=== PATIENT | female | born 1970 | race Caucasian/White ===

== ENCOUNTER 2020-07-09 16:09 | Emergency (ER) | payer BC, OTHER ==
--- NOTE | 2020-07-09 16:17 | ERPHSYRPT ---
- History of Present Illness Time Seen by Provider: 07/09/20 16:17 Source: patient Exam Limitations: no limitations Physician History: This is a 50-year-old white female who is known to be COVID-19 positive. She was diagnosed on June 28, 2020. Patient symptoms of cough, body aches and shortness of breath have increased and she is here for further evaluation. Timing/Duration: today Cough Quality/Degree: moderate, dry cough Possible Cause: occasional episodes Modifying Factors: Improves With: coughing Associated Symptoms: cough, shortness of breath, No fever, No chest pain/soreness Travel Risk - International Travel Have you traveled outside of the country in past 3 weeks: No - Coronavirus Screening Are you exhibiting any of the following symptoms?: Yes Symptoms: Fever, Cough: New Onset, Shortness of Breath, Headaches/Body Aches/Fatigue Close contact with a COVID-19 positive Pt in past 14-21 Days: Yes - Review of Systems Constitutional: No Symptoms Eyes: No Symptoms Ears, Nose, & Throat: No Symptoms Respiratory: Cough, Dyspnea Cardiac: No Symptoms Abdominal/Gastrointestinal: No Symptoms Genitourinary Symptoms: No Symptoms Musculoskeletal: No Symptoms Skin: No Symptoms Neurological: No Symptoms Psychological: No Symptoms Endocrine: No Symptoms Hematologic/Lymphatic: No Symptoms Immunological/Allergic: No Symptoms All Other Systems: Reviewed and Negative - Past Medical History Pertinent Past Medical History: Yes Neurological History: No Pertinent History ENT History: No Pertinent History Cardiac History: No Pertinent History Respiratory History: No Pertinent History Endocrine Medical History: No Pertinent History Musculoskeletal History: No Pertinent History GI Medical History: No Pertinent History History: No Pertinent History Psycho-Social History: No Pertinent History Female Reproductive Disorders: No Pertinent History - Past Surgical History Past Surgical History: Yes Neuro Surgical History: No Pertinent History Cardiac: No Pertinent History Respiratory: No Pertinent History Gastrointestinal: No Pertinent History Genitourinary: No Pertinent History Musculoskeletal: No Pertinent History Female Surgical History: No Pertinent History - Nursing Vital Signs Nursing Vital Signs: Initial Vital Signs Temperature 98.2 F 07/09/20 16:16 Pulse Rate 85 07/09/20 16:16 Respiratory Rate 15 07/09/20 16:16 Blood Pressure 133/92 07/09/20 16:16 O2 Sat by Pulse Oximetry 100 07/09/20 16:16 Pain Scale Pain Intensity 5 - Physical Exam General Appearance: mild distress, alert, anxiety Eye Exam: PERRL/EOMI Ears, Nose, Throat Exam: normal ENT inspection, moist mucous membranes Neck Exam: normal inspection, non-tender, supple, full range of motion Respiratory Exam: normal breath sounds, lungs clear, airway intact, No chest tenderness, No respiratory distress Cardiovascular Exam: regular rate/rhythm, normal heart sounds, normal peripheral pulses Gastrointestinal/Abdomen Exam: soft, normal bowel sounds, No tenderness Pelvic Exam: not done Rectal Exam: not done Back Exam: normal inspection, normal range of motion, No CVA tenderness, No vertebral tenderness Extremity Exam: normal inspection, normal range of motion, pelvis stable Neurologic Exam: alert, oriented x 3, cooperative, screen roller II-XII nml as tested, normal mood/affect, nml cerebellar function, nml station & gait, sensation nml Skin Exam: normal color, warm, dry Lymphatic Exam: No adenopathy SpO2 Interpretation: normal O2 Delivery: Room Air - Course Nursing assessment & vital signs reviewed: Yes EKG Interpreted by Me: RATE ([id number]), Sinus Rhythm, NORMAL AXIS, NORMAL INTERVALS, NORMAL QRS Ordered Tests: Active Orders 24 hr Category Date Time Status Blow Moulding Machine Operator STAT Care 07/09/20 16:21 Active EKG-ER Only STAT Care 07/09/20 16:20 Active IV Insertion STAT Care 07/09/20 16:20 Active Isolation, Initiate & Maintain STAT Care 07/09/20 16:20 Active CHEST 1 VIEW (PORTABLE) Stat Exams 07/09/20 16:21 Completed CHEST WITH CONTRAST [CT] Stat Exams 07/09/20 17:20 Taken BLOOD CULTURE Stat Lab 07/09/20 16:40 Received CBC W DIFF Stat Lab 07/09/20 16:40 Completed CMP Stat Lab 07/09/20 16:40 Completed D-DIMER QUANTITATIVE Stat Lab 07/09/20 16:40 Completed Ferritin Stat Lab 07/09/20 16:40 Completed LDH-LACTATE DEHYDROGENASE Stat Lab 07/09/20 16:40 Completed Lactic Acid Stat Lab 07/09/20 16:33 Completed [place] Screen Stat Lab 07/09/20 16:40 Completed TROPONIN Q3H Lab 07/09/20 16:40 Completed TROPONIN Q3H Lab 07/09/20 19:30 Ordered TROPONIN Q3H Lab 07/09/20 22:30 Ordered TROPONIN Q3H Lab 07/10/20 01:30 Ordered TROPONIN Q3H Lab 07/10/20 04:30 Ordered Medication Summary Generic Name Dose Route Start Last Admin Trade Name Josh PRN Reason Stop Dose Admin Sodium Chloride 1,000 mls @ 100 mls/hr 07/09/20 17:30 07/09/20 17:29 Sodium Chloride 0.9% 1000 Ml IV 08/08/20 17:29 100 mls/hr .Q10H QUANG Administration Ceftriaxone Sodium/Dextrose 1 g in 50 mls @ 100 mls/hr 07/09/20 18:50 Rocephin 1 Gm-D5w 50 Ml Bag IV 07/09/20 19:19 STAT STA Discontinued Medications Generic Name Dose Route Start Last Admin Trade Name Josh PRN Reason Stop Dose Admin Hydrocodone Bitart/Acetaminophen 10 ml 07/09/20 16:46 07/09/20 16:51 Hydrocodone-Acetamin 2.5-108/5 Ml Solution PO 07/09/20 16:47 10 ml STAT STA Administration Hydrocodone Bitart/Acetaminophen Confirm 07/09/20 16:47 Hydrocodone-Acetamin 2.5-108/5 Ml Solution Administered 07/09/20 16:48 Dose 10 ml .ROUTE .STK-MED ONE Methylprednisolone Sodium Succinate 125 mg 07/09/20 16:45 07/09/20 16:51 Solu-Medrol 125 Mg IV 07/09/20 16:46 125 mg STAT ONE Administration Methylprednisolone Sodium Succinate Confirm 07/09/20 16:47 Solu-Medrol 125 Mg Administered 07/09/20 16:48 Dose 125 mg .ROUTE .STK-MED ONE Lab/Rad Data: Laboratory Result Diagrams 07/09/20 16:40 07/09/20 16:40 Laboratory Results 07/09/20 07/09/20 07/09/20 Range/Units 16:40 16:40 16:40 WBC (4.0-10.5) K/mm3 RBC (4.1-5.4) M/mm3 Hgb (12.0-16.0) gm/dl Hct (35-47) % MCV (78-100) fl MCH (26-32) pg MCHC (32-36) g/dl RDW (11.5-14.0) % Plt Count (150-450) K/mm3 MPV (7.5-11.0) fl Gran % (36.0-66.0) % Eos # (Auto) (0-0.5) Absolute Lymphs (auto) (1.0-4.6) Absolute Monos (auto) (0.0-1.3) Lymphocytes % (24.0-44.0) % Monocytes % (0.0-12.0) % Eosinophils % (0.00-5.0) % Basophils % (0.0-0.4) % Absolute Granulocytes (1.4-6.9) Basophils # (0-0.4) D-Dimer (215-500) ng/mL Sodium (137-145) mmol/L Potassium (3.5-5.1) mmol/L Chloride (98-107) mmol/L Carbon Dioxide (22-30) mmol/L Anion Gap (5-15) MEQ/L BUN (7-17) mg/dL Creatinine (0.52-1.04) mg/dL Estimated GFR ML/MIN Glucose (74-106) mg/dL Lactic Acid (0.4-2.0) Calcium (8.4-10.2) mg/dL Ferritin 34.0 (11.1-264) ng/mL Total Bilirubin (0.2-1.3) mg/dL AST (14-36) U/L ALT (0-35) U/L Alkaline Phosphatase (38-126) U/L Lactate Dehydrogenase (120-246) U/L Troponin I < 0.012 (0.000-0.034) ng/mL Serum Total Protein (6.3-8.2) g/dL Albumin (3.5-5.0) g/dL Monoscreen NEGATIVE (Negative) Influenza Type A Ag (NEGATIVE) Influenza Type B Ag (NEGATIVE) RSV (PCR) (Negative) Group A Strep Antibody (NEGATIVE) 07/09/20 07/09/20 07/09/20 Range/Units 16:40 16:40 16:40 WBC (4.0-10.5) K/mm3 RBC (4.1-5.4) M/mm3 Hgb (12.0-16.0) gm/dl Hct (35-47) % MCV (78-100) fl MCH (26-32) pg MCHC (32-36) g/dl RDW (11.5-14.0) % Plt Count (150-450) K/mm3 MPV (7.5-11.0) fl Gran % (36.0-66.0) % Eos # (Auto) (0-0.5) Absolute Lymphs (auto) (1.0-4.6) Absolute Monos (auto) (0.0-1.3) Lymphocytes % (24.0-44.0) % Monocytes % (0.0-12.0) % Eosinophils % (0.00-5.0) % Basophils % (0.0-0.4) % Absolute Granulocytes (1.4-6.9) Basophils # (0-0.4) D-Dimer 1166 H* (215-500) ng/mL Sodium 138 (137-145) mmol/L Potassium 3.7 (3.5-5.1) mmol/L Chloride 107 (98-107) mmol/L Carbon Dioxide 28 (22-30) mmol/L Anion Gap 7.2 (5-15) MEQ/L BUN 10 (7-17) mg/dL Creatinine 0.50 L (0.52-1.04) mg/dL Estimated GFR > 60.0 ML/MIN Glucose 109 H (74-106) mg/dL Lactic Acid (0.4-2.0) Calcium 8.9 (8.4-10.2) mg/dL Ferritin (11.1-264) ng/mL Total Bilirubin 0.30 (0.2-1.3) mg/dL AST 23 (14-36) U/L ALT 17 (0-35) U/L Alkaline Phosphatase 70 (38-126) U/L Lactate Dehydrogenase 194 (120-246) U/L Troponin I (0.000-0.034) ng/mL Serum Total Protein 6.8 (6.3-8.2) g/dL Albumin 3.8 (3.5-5.0) g/dL Monoscreen (Negative) Influenza Type A Ag NEGATIVE (NEGATIVE) Influenza Type B Ag NEGATIVE (NEGATIVE) RSV (PCR) NEGATIVE (Negative) Group A Strep Antibody (NEGATIVE) 07/09/20 07/09/20 07/09/20 Range/Units 16:40 16:33 16:21 WBC 7.2 (4.0-10.5) K/mm3 RBC 4.11 (4.1-5.4) M/mm3 Hgb 12.3 (12.0-16.0) gm/dl Hct 38.0 (35-47) % MCV 92.5 (78-100) fl MCH 29.9 (26-32) pg MCHC 32.4 (32-36) g/dl RDW 12.9 (11.5-14.0) % Plt Count 338 (150-450) K/mm3 MPV 10.3 (7.5-11.0) fl Gran % 74.5 H (36.0-66.0) % Eos # (Auto) 0.13 (0-0.5) Absolute Lymphs (auto) 1.12 (1.0-4.6) Absolute Monos (auto) 0.59 (0.0-1.3) Lymphocytes % 15.5 L (24.0-44.0) % Monocytes % 8.1 (0.0-12.0) % Eosinophils % 1.8 (0.00-5.0) % Basophils % 0.1 (0.0-0.4) % Absolute Granulocytes 5.39 (1.4-6.9) Basophils # 0.01 (0-0.4) D-Dimer (215-500) ng/mL Sodium (137-145) mmol/L Potassium (3.5-5.1) mmol/L Chloride (98-107) mmol/L Carbon Dioxide (22-30) mmol/L Anion Gap (5-15) MEQ/L BUN (7-17) mg/dL Creatinine (0.52-1.04) mg/dL Estimated GFR ML/MIN Glucose (74-106) mg/dL Lactic Acid 1.6 (0.4-2.0) Calcium (8.4-10.2) mg/dL Ferritin (11.1-264) ng/mL Total Bilirubin (0.2-1.3) mg/dL AST (14-36) U/L ALT (0-35) U/L Alkaline Phosphatase (38-126) U/L Lactate Dehydrogenase (120-246) U/L Troponin I (0.000-0.034) ng/mL Serum Total Protein (6.3-8.2) g/dL Albumin (3.5-5.0) g/dL Monoscreen (Negative) Influenza Type A Ag (NEGATIVE) Influenza Type B Ag (NEGATIVE) RSV (PCR) (Negative) Group A Strep Antibody NOT DETECTED (NEGATIVE) - Progress Progress: improved, re-examined Air Movement: good Progress Note: 07/09/20 17:16 Chest x-ray shows no acute cardiopulmonary process. 07/09/20 18:54 CAT scan of the chest with contrast is negative for pulmonary emboli. There is very subtle patchy bilateral lower lobe peripheral opacities typical in appearance for COVID-19 pneumonia. Medical decision making: This patient states that her symptoms have significantly improved after infusion of methylprednisolone and consumption of hydrocodone solution to help control her cough. Her white count is normal, patient is afebrile, she is oxygenating at 99% on room air, her lactic acid is normal, her anion gap is also normal. Her CO2 is normal. Patient wants to go home. She is feeling much better and feels she can continue improving on the prednisone, hydrocodone, Z-Nicko regimen. I think this is reasonable. Blood Culture(s) Obtained: Yes Antibiotics given: Yes Counseled pt/family regarding: lab results, diagnosis, need for follow-up, rad results - Departure Departure Disposition: Home Clinical Impression: Pneumonia due to COVID-19 virus Condition: Stable Critical Care Time: Yes Critical Care Time(excluding separately billable procedures): Critical 30-74 mins Referrals: [facility] [Primary Care Provider] - Additional Instructions: Drink plenty of fluids. Take your medication as prescribed. Return to the emergency department if your symptoms worsen. Quarantine yourself until you are asymptomatic and have a negative COVID-19 lab test. Prescriptions: Prednisone 10 mg [Deltasone 10 mg] 10 mg PO TID #12 tablet Hydrocodone Bit/Acetaminophen [Hydrocodone-Acetaminophen Soln] 10 ml PO Q6H #120 ml Albuterol 8 gm Mdi Hfa [Ventolin Hfa MDI] 8 gm IH Q4H #1 [email or web address] Azithromycin 250 mg [Zithromax 250 MG TABLET] 250 mg PO ZPACK #6 tablet
[2020-07-09] MEDS ORDERED: solu-MEDROL 125 MG IV ONE (16:45)
[2020-07-09] MEDS ORDERED: HYDROCODONE-ACETAMIN 2.5-108/5 ML SOLUTION PO STA (16:46)
[2020-07-09] MEDS ORDERED: solu-MEDROL 125 MG ONE (16:47)
[2020-07-09] MEDS ORDERED: HYDROCODONE-ACETAMIN 2.5-108/5 ML SOLUTION ONE (16:47)
[2020-07-09 16:54] LABS: Absolute Neutrophil Ct (ANC) 5.39 (1.4-6.9); BASOPHIL % 0.1 % (0.0-0.4); Basophil (Absolute #) 0.01 (0-0.4); Eosinophil % 1.8 % (0.00-5.0); Eosinophil (Absolute #) 0.13 (0-0.5); Hemoglobin 12.3 gm/dl (12.0-16.0); Lymphocyte (Absolute #) 1.12 (1.0-4.6); Lymphocytes % 15.5 % (24.0-44.0); Mean Cell Volume 92.5 fl (78-100); Mean Corpuscular Hemoglobin 29.9 pg (26-32); Mean Corpuscular Hgb Concent. 32.4 g/dl (32-36); Mean Platelet Volume 10.3 fl (7.5-11.0); Monocyte (Absolute #) 0.59 (0.0-1.3); Monocytes % 8.1 % (0.0-12.0); Neutrophil % 74.5 % (36.0-66.0); Platelet Count 338 K/mm3 (150-450); Red Blood Count 4.11 M/mm3 (4.1-5.4); Red Cell Distribution Width 12.9 % (11.5-14.0); White Blood Count 7.2 K/mm3 (4.0-10.5)
--- NOTE | 2020-07-09 16:56 | XRAY ---
Indication: Cough. Short of breath. Positive Covid 19. Comparison: None Portable chest clear. Heart and mediastinal structures within normal limits. Bony thorax intact. Impression: Nonacute chest.
[2020-07-09 17:15] LABS: ALBUMIN 3.8 g/dL (3.5-5.0); ALKALINE PHOSPHATASE 70 U/L (38-126); ANION GAP 7.2 MEQ/L (5-15); BLOOD UREA NITROGEN 10 mg/dL (7-17); CHLORIDE 107 mmol/L (98-107); Calcium 8.9 mg/dL (8.4-10.2); Carbon Dioxide 28 mmol/L (22-30); EST GLOMERULAR FILTRATION RATE > 60.0 ML/MIN; Glucose 109 mg/dL (74-106); LDH-LACTATE DEHYDROGENASE 194 U/L (120-246); Potassium 3.7 mmol/L (3.5-5.1); SGOT/AST 23 U/L (14-36); SGPT/ALT 17 U/L (0-35); SODIUM 138 mmol/L (137-145); Total Protein 6.8 g/dL (6.3-8.2)
[2020-07-09] MEDS ORDERED: Sodium Chloride 0.9% 1000 ML 1,000 ML ONE (17:28)
[2020-07-09] MEDS ORDERED: Sodium Chloride 0.9% 1000 ML 1,000 ML IV SCH (17:30)
[2020-07-09 17:40] LABS: INFLUENZA A NEGATIVE (NEGATIVE); INFLUENZA B NEGATIVE (NEGATIVE); RESPIRATORY SYNCTIAL VIRUS NEGATIVE (Negative)
[2020-07-09] MEDS ORDERED: ROCEPHIN 1 Gm-D5w 50 ml Bag** 1 G/50 ML IVPB IV STA (18:50)
[2020-07-09] MEDS ORDERED: ROCEPHIN 1 Gm-D5w 50 ml Bag** 1 G/50 ML IVPB IV ONE (19:17)
[2020-07-09 19:33] VITALS: BP 132/75; PULSE 83; O2SAT 99
--- NOTE | 2020-07-10 08:44 | XRAY ---
Indication: Cough and short of breath. Positive Covid 19. Multiple contiguous axial images obtained through the chest using 80 cc Isovue 370 contrast and PE protocol. Comparison: None. There is good opacification of the pulmonary arteries to include the lobar and segmental branches. No pulmonary embolus. Heart is not enlarged. Aorta is normal in course and caliber. Prominent right perihilar matted nodes, largest suprahilar measuring 1.8 x 1.7 cm. Lungs demonstrates bilateral lower lobe peripheral patchy groundglass opacities favoring pneumonia. No consolidation or large effusion. Bony thorax intact. Limited upper abdomen demonstrates mild fatty liver. Impression: 1. Negative pulmonary embolus. 2. Bilateral lower lobe peripheral groundglass opacities. Findings are commonly reported imaging features of Covid 19 pneumonia. Other processes such as influenza pneumonia and organizing pneumonia, as can be seen with drug toxicity and connective tissue disease, can cause a similar imaging pattern. 3. Prominent right perihilar matted adenopathy presumed reactive. 4. Incidental fatty liver.
== END 2020-07-09 20:00 | disposition home or self-care (01) ==
LOC: ED 16:09
DX: U07.1 COVID-19 (principal); J12.89 Other viral pneumonia
CPT/HCPCS: 36000; 36415; 71045; 71260; 80053; 82728; 83605; 83615; 84484; 85025; 85379; 86308; 87040; 87631; 87651; 93005; 93041; 96360; 96365; 96374; 99284; 99291; J0696; J2930; A9270-GY